=== PATIENT | female | born 1960 | race Caucasian/White ===

== ENCOUNTER 2024-10-09 06:20 | Day surgery (SDC) | payer BC, SELFPAY ==
--- NOTE | 2024-10-07 07:00 | EKG_ITS ---
[facility] Test Date: 2024-10-07 Pat Name: TIMA RUFF Department: Room: - Gender: Female Director Work: [place] : 1960 Requested By: John Chance Order Number: [id number] Reading MD: John Chance Measurements Intervals [place] Rate: 79 P: 43 DC: 153 QRS: 77 QRSD: 89 T: 52 QT: 362 QTc: 415 Interpretive Statements SINUS RHYTHM No previous ECG available for comparison /store/S0/[id number]
[2024-10-07 08:36] VITALS: BMI 36.4
[2024-10-07 11:40] LABS: Alanine Aminotransferase 12 U/L (10-49); Albumin, Serum 4.7 gm/dL (3.4-4.8); Albumin/Globulin Ratio 1.5 (1.2-2.2); Alkaline Phosphatase 130 U/L (46-116); Anion Gap 10 (7-16); Aspartate Amino Transferase 19 U/L (0-34); BUN/Creatinine Ratio 18 Ratio (12-20); Bilirubin,Total 1.4 mg/dL (0.3-1.2); Blood Urea Nitrogen 16 mg/dL (9-23); Calcium 10.4 mg/dL (8.3-10.6); Calcium (Corrected) 10.4 mg/dL (8.5-10.1); Carbon Dioxide 25.9 mMol/L (20.0-31.0); Chloride 103 mMol/L (98-107); Creatinine (Component) 0.9 mg/dL (0.6-1.3); Estimated Creatinine Clearance 76.3 mL/min (>60); Globulin 3.1 gm/dL (2.3-3.5); Glucose 120 mg/dL (74-106); Osmolality,Calculated 279 (275-295); Potassium 4.2 mMol/L (3.4-5.1); Sodium 139 mMol/L (136-145); Total Protein 7.8 gm/dL (5.7-8.2); eGFR > 60 See Note
[2024-10-09] VITALS (7 sets, daily range): BP systolic 114–161; BP diastolic 71–88; PULSE 76–94; RESP 12–16; TEMP 36.5–36.6; O2SAT 93–100; BMI 35.0
[2024-10-09] MEDS: RINGERS LACTATED 1000 ML 1,000 ML 20 ML IV (06:54)
--- NOTE | 2024-10-09 09:45 | SUR.PHASEI ---
pt arrived to PACU via gurney with oral airway present, respirations even and unlabored, cotton ball to right ear clean, dry, and intact, report from Kamar VANN and Dr Correia
--- NOTE | 2024-10-09 09:50 | ESOP_ITS ---
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 Normal mobility of the malleus and incus. Procedure Description Patient is: This is a 64-year-old female with bilateral severe mixed hearing loss. Testing indicated bilateral otosclerosis. Treatment options were discussed as well as surgical risks including bleeding infection hearing loss decreased sense of taste dizziness and tinnitus. She understood this and wished to proceed. Patient was marked in the preoperative setting and then transferred to the operative suite where she was anesthetized and intubated. She was then sterilely prepped and draped and a timeout performed. Right ear is visualized with the operative microscope and irrigated with warm saline and solution. The ejected with 1% lidocaine with 1 100,000 Frankie epinephrine. Approximately 1 cc total was used. Posterior tympanomeatal flap was then created and the tympanic membrane was turned forward. The canal was very small and had to work through a #4 ear speculum. The chorda tympani nerve was identified and preserved. Mobility was tested and the footplate was found to be fixed. Scutum was curetted back to improve visualization of the remainder of the footplate. Chorda tympani nerve was preserved. It did require manipulation posteriorly to prevent traumatization from the laser. Once good visualization was obtained of the footplate the inspected with the CO2 laser at a setting of 2 W. The incudostapedial joint knife was then used to separate the incus and stapes. Mobility of the malleus and incus was confirmed. The depth of the prosthesis needed was measured with the Lincoln guide and found to require a 4.5 mm prosthesis. The CO2 laser was then used to incise the posterior crura. Intestinal mobility that actually fractured off at near the footplate posteriorly and then the anterior melyssa was fractured as well. The footplate remained intact. The depth was measured again with the depth gauge. CO2 laser was then set to this with laser setting at 20 W with a 0.7 mm diameter. A total of 4 pulses were required to penetrate through the footplate. The footplate sizer was then used to confirm appropriate diameter of the stapedotomy. 4.5 mm prosthesis was then brought into the field and gently placed into the sta pedotomy and onto the long process of the incus. Once the prosthesis was in the proper position it was crimped with multiple pulses of the CO2 laser first at 1 and then at 2 W. Mobility then was tested and the prosthesis appeared to be secure on the incus. The chorda tympani nerve did not appear to be traumatized. There was a good blood seal around the prosthesis and the oval window. Tympanic membrane and flap returned back to their normal position and a piece of Surgifoam dipped in saline was placed on top of the flap. Patient was awakened taken recovery room in stable condition Anesthesia GETA Implants 4.5 x 0.6 per Smart piston prosthesis Pathology / specimen None Estimated Blood Loss 1 Surgeon John Orozco DO Surgical Staff Operation Date: 10/09/24 08:30 Case Staff Anesthesiologist: Andreas Correia
--- NOTE | 2024-10-09 10:02 | SUR.PHASEI ---
pt tolerating oral fluids without difficulty swallowing or n/v
--- NOTE | 2024-10-09 10:45 | SUR.PHASEII ---
pt awake, alert, breathing unlabored, cotton ball to right ear clean, dry, and intact, VS stable, pt denies pain, discharge instructions given with spouse present, pt able to dress self and ambulate to wheelchair with steady gait, pt discharged via wheelchair with all belongings and copies of discharge paperwork.
== END 2024-10-09 10:45 | disposition home or self-care (01) ==
PROVIDERS: PCP Family Medicine; Referring Provider Otolaryngology; Visit Provider Otolaryngology
PROC: (CPT 69660; principal; 2024-10-09 08:30)
DX: H80.03 Otosclerosis involving oval window, nonobliterative, bilateral (principal); H80.93 Unspecified otosclerosis, bilateral; H90.6 Mixed conductive and sensorineural hearing loss, bilateral; Z01.810 Encounter for preprocedural cardiovascular examination
CPT/HCPCS: 69660; 36415; 80053; 93005; A4217; A4649; J0131; J0171; J0690; J1100; J2250; J2371; J2405; J2704; J3010; J3490; J7120; L8613; A9270

== ENCOUNTER 2024-12-04 06:15 | Day surgery (SDC) | payer BC, SELFPAY ==
[2024-12-03 10:31] VITALS: BMI 35.4
[2024-12-03 12:37] LABS: Alanine Aminotransferase 12 U/L (10-49); Albumin, Serum 4.8 gm/dL (3.4-4.8); Albumin/Globulin Ratio 1.8 (1.2-2.2); Alkaline Phosphatase 132 U/L (46-116); Anion Gap 12 (7-16); Aspartate Amino Transferase 16 U/L (0-34); BUN/Creatinine Ratio 12 Ratio (12-20); Bilirubin,Total 1.5 mg/dL (0.3-1.2); Blood Urea Nitrogen 12 mg/dL (9-23); Calcium 9.8 mg/dL (8.3-10.6); Calcium (Corrected) 9.8 mg/dL (8.5-10.1); Carbon Dioxide 27.7 mMol/L (20.0-31.0); Chloride 104 mMol/L (98-107); Globulin 2.7 gm/dL (2.3-3.5); Glucose 102 mg/dL (74-106); Osmolality,Calculated 286 (275-295); Potassium 4.5 mMol/L (3.4-5.1); Sodium 144 mMol/L (136-145); Total Protein 7.5 gm/dL (5.7-8.2); eGFR > 60 See Note
[2024-12-04 07:00] VITALS: BP 152/77; PULSE 78; RESP 16; TEMP 37; O2SAT 98; BMI 35.2
[2024-12-04] MEDS: RINGERS LACTATED 1000 ML 1,000 ML 20 ML IV (07:58)
[2024-12-04] MEDS: DEXAMETHASONE SOD PHOS INJ 10 MG/ML VIAL 8 MG IVP (07:58)
--- NOTE | 2024-12-04 09:39 | SUR.OPER ---
Implant: Smart 360 stapes piston 0.6 mm x 4.75 mm Nitinol fluoroplastic REF: [id number] LOT: [id number] Exp. 08/09/31 x 1 Implant
--- NOTE | 2024-12-04 10:03 | SUR.OPER ---
Previous implant (REF: [id number]) was an in and out implant. New implant: [employer] Blount fluoroplastic bucket handle prosthesis 1.0 mm well 0.6mm diameter 5.0 mm long stainless bail REF: [id number] LOT: [id number] Exp. 06/21/27 x 1 implant
--- NOTE | 2024-12-04 10:22 | SUR.OPER ---
Previous implant (REF:[id number]) was an in and out. New implant: [employer] Lippy Bucket handle with notch 0.6mm x 4.75 mm titanium REF: [id number] LOT: [id number] Exp. 09/26/25 x 1 implant
[2024-12-04 10:38] VITALS: BP 137/93; PULSE 85; RESP 15; TEMP 37; O2SAT 100
--- NOTE | 2024-12-04 10:38 | SUR.PHASEII ---
1038: Pt. AAOx4, vitals stable, breathing unlabored, no complaint of pain or nausea, no dressing in place, no active bleed noted, report received from Kamar VANN and Rahsel REID.
[2024-12-04 10:43] VITALS: BP 158/77; PULSE 80; RESP 15; TEMP 36.9; O2SAT 97
[2024-12-04 10:48] VITALS: BP 107/84; PULSE 87; RESP 16; TEMP 36.7; O2SAT 97
--- NOTE | 2024-12-04 10:49 | ESOP_ITS ---
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 Findings Displaced stapes prosthesis in the middle ear oval window and sealed back over. Chorda tympani nerve was not visualized Procedure Description Indications: A 64-year-old female who underwent right laser stapedotomy with prosthesis back in September. Initially she thought she was hearing some but as a postoperative period progressed it became apparent that she was not hearing any better in that ear and this was confirmed with audiometric testing. She still had a maximal conductive hearing loss in that ear. It was recommended that we go back and evaluate to see if the prosthesis had come out of position and she wished to proceed. Patient was aware of the risk as well as anticipated outcomes. Patient was marked in the preoperative setting and then transferred to the operative suite where she was sterilely prepped and draped and a timeout was performed. Patient was under IV sedation so that we could evaluate status once the prosthesis was in place. The external canal was irrigated with warm saline solution and suctioned and then injected with 1% lidocaine with 1 100,000 dilution epinephrine. Approximately 1 cc total was used. Posterior tympanomeatal flap was developed and ear turned forward. The patient has a small ear canal and a large shoulder and short neck making access difficult. The prosthesis was visualized laying on the promontory out of position. The incus was in good condition the chorda tympani nerve was not visualized. The footplate had visibly sealed over. The prosthesis was removed. The scutum was curetted back further to improve visualization. The depth gauge was used to measure the distance from the footplate to the top of the incus and it measured 4.5 mm. The CO2 laser Devine laser setting was then used to create the s tapedotomy with 1 pulse. Footplate sizer was used to make sure the opening was adequate for the prosthesis. A new Smart piston prosthesis was brought into the field but when placing it I felt it to be too short and so in the attempts to reposition and remove it it slipped behind the scutum and was out of reach. A 4.75 mm length Smart piston prosthesis was then brought into the field and I had difficulty getting it to insert into the stapedotomy without falling back posteriorly. The Nitrol portion became bent and tried to straighten it but again struggled with getting it in. At this time I elected to go with a Lippy bucket handle prosthesis. I was handed a prosthesis that was fluoroplastic that was old and the bucket handle was not mobile. I tried to use it but after attempting to place it it was obvious that the prosthesis was not going to work well. It was removed and the prosthesis that I wanted the titanium Lippy bucket handle prosthesis was then found and brought into the field. It was a 0.6 mm diameter by 4.75 length. This prosthesis I was able to place into the stapedotomy and place it underneath the long process of the incus and manipulate the handle on top of the incus. Patient was able to hear much better. She did not have any dizziness or increase in her tinnitus either. A good blood seal formed around it. The drum was turned back and the hearing tested again the patient's hearing was even better. Small piece of Surgifoam dipped in saline was placed on top the patient was transferred to the operative suite in stable condition. Anesthesia other (IV sedation) Pathology / specimen None Estimated Blood Loss 1 Surgeon John Orozco DO Surgical Staff Operation Date: 12/04/24 08:30 Case Staff Anesthesiologist: Carlos Kiser
[2024-12-04 10:53] VITALS: BP 157/74; PULSE 86; RESP 17; TEMP 36.8; O2SAT 95
[2024-12-04 11:08] VITALS: BP 132/82; PULSE 82; RESP 12; TEMP 36.8; O2SAT 95
--- NOTE | 2024-12-04 11:20 | SUR.PHASEII ---
1120: Pt. AAOx4, vitals stable, breathing unlabored, no complaint of pain or nausea, cottonball to right ear in place CDI, no active bleed noted, pt. tolerated sips of water well, pt. ambulated to wheelchair with steady gait and no assist, no complications. Gave discharge instructions to the pt. and her ride, both verbalized understanding and had no further questions. Pt. left with all personal belongings.
== END 2024-12-04 11:20 | disposition home or self-care (01) ==
PROVIDERS: PCP Family Medicine; Referring Provider Otolaryngology; Visit Provider Otolaryngology
PROC: (CPT 69662; principal; 2024-12-04 08:15)
DX: H80.93 Unspecified otosclerosis, bilateral (principal); H90.6 Mixed conductive and sensorineural hearing loss, bilateral
CPT/HCPCS: 69662; 36415; 80053; A4217; A4649; J0171; J0690; J1100; J2250; J2405; J2704; J3010; J3490; J7120; L8613; A9270